=== PATIENT | female | born 1975 | race Hispanic/Latino ===

== ENCOUNTER → 2020-02-23 | Day surgery (SDC) | payer BC ==
[2020-02-18 16:41] LABS: ANION GAP 15.9 mmol/L (8-16); BLOOD UREA NITROGEN 7 mg/dL (7-26); BUN/CREATININE RATIO 12 (6-25); CALCIUM 8.9 mg/dL (8.4-10.2); CARBON DIOXIDE 22 mmol/L (22-29); CHLORIDE 102 mmol/L (98-107); EST GLOMERULAR FILTRATION RATE > 60 ML/MIN (60-); GLUCOSE 232 mg/dL (74-118); POTASSIUM 3.9 mmol/L (3.5-5.1); SODIUM 136 mmol/L (136-145)
[~2020-02-23] MED LIST: BIOTIN2500 MCG PO; BUPIVACAINE HCL 0.5% INJ 30 ML VIAL INJ ONE; FENTANYL CITRATE/PF 100MCG/2 ML INJ ONE; GLYBURIDE5 MG PO; GLYCOPYRROLATE INJ 0.2 MG/ML VIAL ONE; INSULIN REGULAR, HUMAN 100 UNIT/1 ML 3ML VIAL ONE; JANUMET 50-1,01 EACH PO; LIDOCAINE HCL 2% LOCAL INJ 5 ML SDV VIAL INJ ONE; LISINOPRIL10 MG PO; METOCLOPRAMIDE HCL 10 MG/2ML VIAL ONE; ONDANSETRON HCL INJ 2MG/ML 2ML 2 MG/ML VIAL ONE; PROMETHAZINE HCL (IM) 25 MG/ML VIAL IM ONE; PROPOFOL IV EMULSION 10 MG/ML 20 ML VIAL ONE; SEVOFLURANE INHAL SOLN 250 ML PEN BTL ONE; SIMVASTATIN20 MG PO
[2020-02-23] MEDS: CEFAZOLIN SOD 1 GM/NS 50ML 100 ML IV ONE (08:10)
[2020-02-23 12:15] VITALS: BP 119/78
--- NOTE | 2020-02-24 18:45 | Operative Report ---
DATE OF PROCEDURE: 02/23/2020 SURGEON: Tylor Chin MD PREOPERATIVE DIAGNOSES: Left knee anterior cruciate ligament tear, left knee lateral meniscus tear, and left knee degenerative joint disease of the knee. POSTOPERATIVE DIAGNOSES: Left knee anterior cruciate ligament tear, left knee lateral meniscus tear, and left knee degenerative joint disease of the knee. OPERATION PROCEDURE PERFORMED: The patient underwent left knee examination under anesthesia, left knee arthroscopy, left knee partial lateral meniscectomy, left knee chondroplasty of the lateral femoral condyle and lateral tibial plateau and patella. ANESTHESIA: General endotracheal intubation anesthesia. IV FLUIDS: Per the anesthesia record. BRIEF DISCUSSION OF THE PATIENT'S OPERATIVE PROCEDURE: Ms. Priest was taken to the operating room and placed in supine position on the operative table. Following induction of general anesthesia, the patient's left lower extremity was examined under anesthesia. She was found to have a mild effusion within the knee joint. She had mild increased anterior translation when compared to the nonaffected side with the anterior drawer test as well as Kyra's test. She had a firm endpoint. The patient's lower extremity was prepped and draped in standard surgical fashion. A two-port technique was used to provide this patient arthroscopic evaluation of the knee joint. Examination of suprapatellar pouch and medial and lateral gutters found no evidence of loose bodies. There was mild chondromalacia of the patella. Scope was advanced to the medial compartment and the medial compartment demonstrated no pathology. Scope was advanced to the intercondylar notch and the anterior cruciate ligament was found to be scarred to the posterior cruciate ligament. The scope was advanced to the lateral compartment and there was chondromalacia of the articulating surfaces. There was also a parrot-beak type tear of the lateral meniscus. A combination of biting forceps and motorized shaver were used to resect the torn portion of meniscus. Chondroplasties of the lateral femoral condyle and lateral tibial plateau were performed at this time. Scope was then advanced to the patella pouch and chondroplasty of the patella was performed. The knee was deflated with sterile normal saline. Each of the portal sites were closed using 4-0 nylon suture. The port sites as well as the knee itself were injected with 0.5% Marcaine with epinephrine. Sterile dressings were applied, and the patient was awakened and taken to postanesthesia care unit in stable condition. MD NELI Clinton/CHRISTINA /[id number]
== END | disposition home or self-care (01) ==
LOC: OR 06:49
PROVIDERS: ATTEND Specialist
DX: S83.282A Other tear of lateral meniscus, current injury, left knee, initial encounter (principal); M23.612 Other spontaneous disruption of anterior cruciate ligament of left knee; M22.42 Chondromalacia patellae, left knee; S83.412A Sprain of medial collateral ligament of left knee, initial encounter; S83.212A Bucket-handle tear of medial meniscus, current injury, left knee, initial encounter; E11.9 Type 2 diabetes mellitus without complications; I10 Essential (primary) hypertension; X50.1XXA Overexertion from prolonged static or awkward postures, initial encounter; W18.39XA Other fall on same level, initial encounter; Y93.01 Activity, walking, marching and hiking
CPT/HCPCS: 29881; 36415 ×2; 80048; 81025; 82948; 93005; J0690; J2001; J2405; J2550; J2704; J2765; J3010; U0002; J1817